=== PATIENT | male | born 1995 | race Caucasian/White ===

== ENCOUNTER 2017-07-27 15:04 | Emergency (ER) | payer BC, OTHER ==
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
[2017-07-27 15:31] VITALS: BP 141/91
--- NOTE | 2017-07-29 09:28 | CR ---
EXAM DATE: 07/27/17 PATIENT'S AGE: 21 Patient: CORINNE PIXLEY Facility: [facility], [place], [place] : 1995 Study: XRay Shoulder Left [id number]/2/2018 3:53:21 PM Ordering Physician: Doctor Gallegos Final Report: INDICATION: Left shoulder pain and injury. TECHNIQUE: Three view. FINDINGS: No acute fracture is seen of the left shoulder. The AC and glenohumeral joints appear to be intact. Visualized left ribs and lung are unremarkable. IMPRESSION: No acute fracture or dislocation is identified of the left shoulder. Signed by: Tobias Veloz MD @07/27/2017 4:16:46 PM DW/Dictated by: Tobias Veloz MD @ 07/27/2017 4:16:00 PM (Electronic Signature) Report Signed by Proxy. CARLOS
== END 2017-07-27 17:19 | disposition home or self-care (01) ==
LOC: MW.ED 15:04
DX: S49.92XA Unspecified injury of left shoulder and upper arm, initial encounter (principal); V29.9XXA Motorcycle rider (driver) (passenger) injured in unspecified traffic accident, initial encounter
CPT/HCPCS: 73030-26-LT; 73030-LT; 99283; 99284